=== PATIENT | male | born 2000 | race Caucasian/White ===

== ENCOUNTER 2023-08-09 15:29 | Emergency (ER) | payer OTHER, SELFPAY ==
[2023-08-09 15:47] VITALS: BP 142/76; PULSE 107; RESP 16; TEMP 36.8; O2SAT 99
--- NOTE | 2023-08-09 16:15 | ED.GENADULT ---
HPI - General Adult General Chief complaint: Ear Stated complaint: rt ear discomfort Time Seen by Provider: 08/09/23 16:16 Source: patient Mode of arrival: ambulatory Limitations: no limitations History of Present Illness HPI narrative: 23-year-old male patient presents to [facility] with complaints of right ear pain and feeling like it is clogged. Patient states that he woke up this morning was unable to hear from the right ear. Patient states he does wear ear PA's often. Denies fever body aches or chills Related Data Allergies Allergy/AdvReac Type Severity Reaction Status Date / Time No Known Allergies Allergy Verified 08/09/23 16:17 Review of Systems Review of Systems: CONSTITUTIONAL: Denies fever, chills, or sweats. EYES: Denies visual changes, redness, or discharge. ENT: Denies rhinorrhea, congestion, sore throat, positive otalgia. CARDIOVASCULAR: Denies chest pain, palpitations, or edema. RESPIRATORY: Denies cough or dyspnea. GASTROINTESTINAL: Denies abdominal pain, nausea, vomiting, or diarrhea. GENITOURINARY: Denies dysuria or hematuria. SKIN: Denies rash or itching. MUSCULOSKELETAL: Denies back pain, joint pain, or myalgia. NEUROLOGIC: Denies headache, numbness, or weakness. PSYCHIATRIC: Denies anxiety or depression. [facility] Past Medical History Medical History (Updated 08/09/23 @ 16:31 by MARCELA Foley) No significant past medical history Comments At the time of my signature I agree with nursing past medical history, surgical, social, and family history. There is no relevant family history pertinent to the presenting complaint. Exam Narrative: GENERAL: Well-appearing, well-nourished, and in no acute distress. HEAD: Normocephalic, atraumatic. EYES: PERRLA and EOMI. ENT: Nares clear, no rhinorrhea or epistaxis. Mucous membranes moist. unable to visualize bilateral TMs due to cerumen impaction. NECK: Supple. No lymphadenopathy CHEST: Clear to auscultation. No respiratory distress. HEART: Regular rate and rhythm. No murmur heard. Normal peripheral pulses. ABDOMEN: Soft, nontender, nondistended, normal active bowel sounds. EXTREMITIES: Normal range of motion. No edema. SKIN: Warm, dry, no rash. NEURO: No focal deficits. Alert and oriented x3. Course Course Emergency Course: Portions of this chart were completed using voice recognition software Level of Care: Express Care Visit Vital Signs Vital signs: Vital Signs Temperature 36.8 C 08/09/23 15:47 Pulse Rate 107 H 08/09/23 15:47 Respiratory Rate 16 08/09/23 15:47 Blood Pressure 142/76 H 08/09/23 15:47 Pulse Oximetry 99 08/09/23 15:47 Oxygen Delivery Room Air 08/09/23 15:47 Temperature 36.8 C 08/09/23 15:47 Pulse Rate 107 H 08/09/23 15:47 Respiratory Rate 16 08/09/23 15:47 Blood Pressure 142/76 H 08/09/23 15:47 Pulse Oximetry 99 08/09/23 15:47 Oxygen Delivery Room Air 08/09/23 15:47 Vital signs reviewed. The patient has been informed that they may have pre-hypertension or Hypertension based on a BP reading in the department. I recommend that the patient call the primary care provider listed on their discharge instructions or a physician of their choice this week to arrange follow up for further evaluation of possible pre-hypertension or Hypertension Procedures Ear Wax Removal Both Ears: Ear Wax Removal Date: 08/09/23 Ear Wax Removal Time: 16:32 Cerumenolytic Used: 5-10% Sodium Bicarb solution Results: Re-examined: some cerumen remains TM Examination: TM(s) intact, normal appearance and TM(s) erythematous Ear Canal Exam: atraumatic Patient Tolerated Procedure: well Complications: pain Technique: ear canal irrigated Additional Comments: The left ear canal was irrigated with bicarb solution and able to fully extract cerumen. The right ear was irrigated and it did appear that we got majority of the cerumen out but there
== END 2023-08-09 16:29 | disposition home or self-care (01) ==
PROVIDERS: Emergency Provider Nurse Practitioner Family
DX: H60.501 Unspecified acute noninfective otitis externa, right ear (principal); H61.23 Impacted cerumen, bilateral
CPT/HCPCS: 69209; 99213; G0463